=== PATIENT | female | born 1990 | race Caucasian/White ===

== ENCOUNTER 2017-05-03 23:07 | Emergency (ER) | payer SELFPAY ==
--- NOTE | ~2017-05-03 | ER ---
PATIENT'S NAME: WILLIAM CULP [facility] AGE: 26 Y [address] ROOM: [place] [address] LOCATION: [facility] ADMIT DATE: 05/03/2017 ER/Outpatient Report DISCHARGE DATE: 05/04/2017 FAMILY PHYSICIAN: PHYSICIAN, NO ATTENDING PHYSICIAN: Miguel Joshi ADDENDUM: This is an addendum to Timothy Borja's dictation. Please see her dictation. Transfer of care was made to myself at the end of Timothy Borja's shift. Briefly, the patient is a 26-year-old female who presents to the emergency department today with tooth pain. The patient is a 22 weeks' . She has been feeling the baby move. She is not having any other issues other than she has tooth pain. She has multiple dental caries and knows that she has bad teeth. The pain is currently 6/10 in severity, it is sharp, it is worse with touch. The patient was found to have an elevated blood pressure of 189/117. Thus, further laboratory analysis was obtained. CBC is unremarkable. CMP is normal. Liver enzymes are normal. Urinalysis is contaminated and unremarkable. The patient denies any symptoms of urinalysis. I have discussed the results with the patient. I have evaluated the patient's mouth. She does have multiple dental caries in various stages of decay. She is morbidly obese. Upon further questioning, the patient reports she does not take her blood pressure medication that she is supposed to be taking, labetalol. She does continue to smoke. I have discussed with her the importance to stop smoking and take her blood pressure medication as prescribed. I have written a prescription for Pen-VK for her dental caries and pain, to treat the potential periapical abscess. I have also written a prescription for Henley with sedation warning as well as risk and benefit discussion to the baby. I have discussed following up with an OB-[facility] DRYER very closely. She will need a very close followup with her blood pressure, especially since she has had previous issues with miscarriages in the past. I have discussed [id number] instructions including worsening symptoms or any other concerns or return to the emergency department as soon as possible. The patient is agreeable without further questions at this time. DISPOSITION: The patient discharged home in good condition. DO CHRISTIAN IRAHETA/tosha PATIENT'S NAME: WILLIAM CULP [facility] AGE: 26 Y [address] ROOM: [place] [address] LOCATION: [facility] ADMIT DATE: 05/03/2017 ER/Outpatient Report DISCHARGE DATE: 05/04/2017 FAMILY PHYSICIAN: CONCEPCION CROWLEY ATTENDING PHYSICIAN: Miguel Joshi /[id number] d: 05/04/17 0148 t: 05/11/17 1120, OUTPATIENT REPORT
--- NOTE | ~2017-05-03 | ER ---
PATIENT'S NAME: WILLIAM CULP [facility] AGE: 26 Y [address] ROOM: [place] [address] LOCATION: [facility] ADMIT DATE: 05/03/2017 ER/Outpatient Report DISCHARGE DATE: 05/04/2017 FAMILY PHYSICIAN: PHYSICIAN, NO ATTENDING PHYSICIAN: Miguel Joshi Time of Arrival: 2307 hours. Time of Evaluation: 2307 hours. CHIEF COMPLAINT: Dental pain. HISTORY OF PRESENT ILLNESS: This is a 26-year-old female who presents to the ER with dental pain, this has been going on for the past 2 days. She states that she has had lots of troubles with her teeth in the past. She states she does not have any money to see a dentist. She is currently traveling through [place] and states her father had to come into the hospital here in [place], so that is why they are here. She states that she is 22 weeks' . She does have a history of hypertension, but she states that she has not been taking her medications like she is supposed to. She has not used anything for her pain. She denies any other problems at this time. ALLERGIES: NO KNOWN ALLERGIES. MEDICATIONS: Please see medication list nurse's notes. PAST MEDICAL HISTORY: Hypertension. PAST SURGERIES: None. SOCIAL HISTORY: Smokes half a pack a day for the last 7 years. Denies any drug or alcohol use. REVIEW OF SYSTEMS: All systems were reviewed and were negative with the exception of those discussed in the HPI. PHYSICAL EXAMINATION: VITAL SIGNS: Height 5 feet and 7 inches stated, weight 178 kg taken, blood PATIENT'S NAME: WILLIAM CULP [facility] AGE: 26 Y [address] ROOM: [place], [place] [address] LOCATION: [facility] ADMIT DATE: 05/03/2017 ER/Outpatient Report DISCHARGE DATE: 05/04/2017 FAMILY PHYSICIAN: PHYSICIAN, NO ATTENDING PHYSICIAN: Miguel Joshi pressure is 189/107, and saturations 97% on room air. Kylah Coma Score is 15. GENERAL: Alert, morbidly obese female, in mild distress. HEENT: Head: Normocephalic. Eyes: Pupils are equal and reactive to light. Ears: TMs display good light reflexes bilaterally. Nose: Turbinates pink with no drainage. Throat: No exudates or erythema. She does display moist mucous membranes. She does have widespread dental decay. Most of her molars are nubbed out almost down to the gumline. She has no facial swelling noted. NECK: Supple. No lymphadenopathy. LUNGS: Clear to auscultation bilaterally. HEART: Regular rate and rhythm. EXTREMITIES: No clubbing or cyanosis. She maybe has 1+ pedal edema, but it is hard to distinguish due to her obesity. EMERGENCY DEPARTMENT COURSE: Labs are pending. I will be turning the care of the patient over to Dr. Joshi at this time due to shift change. The patient was given one Percocet here in the emergency room during my shift for her pain. The patient understands and agree with care. MIRNA MELARA PA-C FOR DO JUSTIN IRAHETA/modl /[id number] d: t: 05/09/17 1257, OUTPATIENT REPORT
[2017-05-03 23:42] LABS: BILIRUBIN URINE NEGATIVE (NEGATIVE); BLOOD URINE NEGATIVE /UL (NEGATIVE); COLOR URINE YELLOW (YELLOW); GLUCOSE URINE NEGATIVE (NEGATIVE); KETONE URINE NEGATIVE (NEGATIVE); LEUKOCYTES URINE 500 /UL (NEGATIVE); NITRITE URINE NEGATIVE (NEGATIVE); PROTEIN URINE NEGATIVE (NEGATIVE); SPEC GRAVITY URINE 1.025 (1.003-1.035); TURBIDITY URINE CLEAR (CLEAR); UROBILINOGEN URINE NORMAL (NORMAL)
[2017-05-03 23:51] LABS: BASOPHIL % 0.2 %; EOSINOPHIL # 0.2 K/uL (0.0-0.5); EOSINOPHIL % 1.4 %; HEMATOCRIT 32.6 % (33.0-46.0); HEMOGLOBIN 10.8 g/dL (11.0-15.0); IMMATURE GRANULOCYTE # 0.1 K/uL (0.0-0.3); IMMATURE GRANULOCYTE % 0.7 %; LYMPHOCYTE # 1.9 K/uL (0.8-4.0); MCH 29.9 pg (27.0-34.0); MCHC 33.1 gm/dL (32.0-36.5); MCV 90.3 fl (83.0-98.0); MONOCYTE # 0.5 K/uL (0.0-1.0); MONOCYTE % 4.4 %; MPV 10.8 fl (9.4-12.4); NEUTROPHIL # (ANC) 8.7 K/uL (1.8-7.8); NEUTROPHIL % 76.3 %; NRBC % 0 /100WBC (0-0.00); PLATELET COUNT 271 K/uL (150-450); RBC 3.61 M/uL (3.50-5.00); RDW-CV 15.4 % (11.9-14.6); WBC 11.4 K/uL (4.0-11.0)
[2017-05-03 23:51] LABS: BACTERIA URINE FEW (NEGATIVE); RBC URINE NEGATIVE #/HPF (NEGATIVE)
[2017-05-04 00:07] LABS: ALBUMIN 2.7 gm/dL (3.5-5.0); ALK PHOS 102 IU/L (33-138); ALT 15 IU/L (12-78); ANION GAP 12.9 (10.0-19.0); AST 8 IU/L (10-40); BLOOD UREA NITROGEN 7 mg/dL (6-24); CALCIUM 8.8 mg/dL (8.5-10.5); CHLORIDE 107 mMol/L (96-110); CO2 24 mMol/L (22-32); CREATININE 0.7 mg/dL (0.5-1.1); POTASSIUM 3.9 mMol/L (3.7-5.1); SODIUM 140 mMol/L (135-145); TOTAL BILIRUBIN 0.2 mg/dL (0.0-1.5); TOTAL PROTEIN 7.2 g/dL (6.0-8.4)
== END 2017-05-04 01:01 | disposition disaster alternative care site (69) ==
LOC: GMED 23:07
PROVIDERS: Physician Assistant Medical
DX: O99.612 Diseases of the digestive system complicating pregnancy, second trimester (principal); O99.332 Smoking (tobacco) complicating pregnancy, second trimester; O16.2 Unspecified maternal hypertension, second trimester; K08.89 Other specified disorders of teeth and supporting structures; F17.210 Nicotine dependence, cigarettes, uncomplicated; Z3A.22 22 weeks gestation of pregnancy; Z79.899 Other long term (current) drug therapy